=== PATIENT | male | born 1935 | race Caucasian/White ===

== ENCOUNTER → 2018-04-19 | Outpatient (CLI) | payer MEDICARE ==
[~2018-04-19] MED LIST: ASPI-650 PO; ASPI81TA59 PO; CLIN300C8 PO; DOCU-131 PO; DONE10TA14 PO; DONE10TA7 PO; FERR325T18 PO; FOLI0.8T2 PO; GADOBUTROL 7.5 MMOL/7.5 ML PFS ONE; GLIM4TAB2 PO; INSU100C SQ-INSULIN; INSU100V8 SQ; IVIG; LEVE500T53 PO; LEVO50TA5 PO; METH25VI22 PO; METH25VI62 IM; METH500T97 PO; NITR1PAT24 TD; OMEP40CA6 PO; PRED5TAB PO; RITU10VI IV; TAMS0.4C2 PO; TRAM50TA2 PO; VIT1TABL3 PO; WARF3TAB52 PO
== END | disposition home or self-care (01) ==
LOC: CFH 10:26
PROVIDERS: ATTEND Psychiatry & Neurology Neurology
DX: I63.9 Cerebral infarction, unspecified (principal); I67.82 Cerebral ischemia; G31.9 Degenerative disease of nervous system, unspecified; R90.82 White matter disease, unspecified
CPT/HCPCS: 70553; A9585

== ENCOUNTER 2018-07-23 10:00 | Inpatient (IN) | payer MEDICARE ==
[~2018-07-23] VITALS: Ht 177.8 cm; Wt 68.8 kg
[~2018-07-23 10:00] MED LIST changes: -GADOBUTROL 7.5 MMOL/7.5 ML PFS ONE
[2018-07-23] MEDS ORDERED: ASPI-496 PO (10:44)
[2018-07-23] MEDS ORDERED: DOCU-131 PO (10:44)
[2018-07-23] MEDS ORDERED: DIGO125T PO (10:44)
[2018-07-23] MEDS ORDERED: CURCUMIN PO (10:44)
[2018-07-23 11:29] LABS: BASOPHILS # (AUTO) 0.05 x10^3/uL (0-0.1); BASOPHILS % (AUTO) 1 % (0-1); EOSINOPHILS % (AUTO) 0 % (1-7); LYMPHOCYTES # (AUTO) 1.49 x10^3/uL (1-3.4); LYMPHOCYTES % (AUTO) 15 % (22-44); MD NO; MEAN CORPUSCULAR HEMOGLOBIN 31.2 pg (27.5-34.5); MEAN CORPUSCULAR HGB CONC 33.9 g/dL (33.2-36.2); MEAN CORPUSCULAR VOLUME 92.1 fL (81-97); MEAN PLATELET VOLUME 11.2 fL (7.4-10.4); MONOCYTES % (AUTO) 11 % (2-9); NEUTROPHILS # (AUTO) 7.52 x10^3/uL (1.8-6.8); NEUTROPHILS % (AUTO) 74 % (42-75); PLATELET COUNT 118 x10^3/uL (130-400); RED CELL DISTRIBUTION WIDTH 20.8 % (9.4-14.8)
[2018-07-23 11:38] LABS: INTERNATIONAL NORMALIZED RATIO 1.23 (0.93-1.1); PROTHROMBIN TIME 12.7 Seconds (9.6-11.5)
[2018-07-23 11:39] LABS: ALANINE AMINOTRANSFERASE 92 U/L (12-78); ALBUMIN 2.7 g/dL (3.4-5.0); ANION GAP 6 mmol/L (5-15); CALCIUM 7.7 mg/dL (8.5-10.1); CHLORIDE 105 mmol/L (98-107); CREATININE 0.86 mg/dL (0.7-1.3)
[2018-07-23 11:42] LABS: ALKALINE PHOSPHATASE 105 U/L (45-117); BILIRUBIN,TOTAL 2.9 mg/dL (0.2-1.0); TOTAL PROTEIN 5.5 g/dL (6.4-8.2); TROPONIN I 0.064 ng/mL (0.000-0.045)
[2018-07-23] MEDS ORDERED: SODIUM CHLORIDE FLUSH 10ML SYR IVF ONE (12:00)
[2018-07-23] MEDS ORDERED: VANCOMYCIN 1,300 MG in SODIUM CHLORIDE 0.9% 250 ML IV ONE (13:00)
[2018-07-23] MEDS ORDERED: AZTREONAM 2 GM in DEXTROSE 5% 100 ML IV ONE (13:00)
[2018-07-23] MEDS ORDERED: VANCOMYCIN PER PHARMACY MC ONE (13:00)
[2018-07-23] MEDS ORDERED: D5%-0.45% NACL 1,000 ML IV SCH (14:06)
[2018-07-23] MEDS ORDERED: VANCOMYCIN PER PHARMACY MC PRN (14:30)
[2018-07-23] MEDS ORDERED: ONDANSETRON 2MG/ML, 2ML IVPush PRN (14:30)
[2018-07-23] MEDS ORDERED: ONDANSETRON ODT 4 MG PO PRN (14:30)
[2018-07-23] MEDS ORDERED: PHARMACY MAY ADJ FOR RENAL FX MC PRN (14:30)
[2018-07-23] MEDS ORDERED: LABETALOL 5MG/ML, 20ML IVPush PRN (14:30)
[2018-07-23 14:47] VITALS: BP 110/68
[2018-07-23 14:48] LABS: FREE T4 (FREE THYROXINE) 1.14 ng/dL (0.76-1.46)
[2018-07-23] MEDS ORDERED: PHARMACOKINETIC MONITORING MC PRN (15:30)
[2018-07-23] MEDS ORDERED: PHARMACOKINETIC CONSULTATION MC ONE (15:30)
[2018-07-23 17:54] LABS: TROPONIN I 0.071 ng/mL (0.000-0.045)
[2018-07-23] MEDS: D5%-0.9% NACL 1,000 ML IV SCH (17:55)
[2018-07-23] MEDS: AZTREONAM 1 GM in SODIUM CHLORIDE 0.9% 50 ML IV SCH (17:56)
[2018-07-23 18:44] LABS: CULTURE INDICATED? YES; MICROSCOPIC INDICATED
[2018-07-23 20:05] VITALS: BP 111/60
[2018-07-23] MEDS: DONEPEZIL 10 MG TABLET PO SCH (21:00)
[2018-07-23] MEDS ORDERED: MAGNESIUM SULFATE PMX 2GM/50ML 50 ML IV ONE (22:00)
[2018-07-24] MEDS: AZTREONAM 1 GM in SODIUM CHLORIDE 0.9% 50 ML IV SCH ×3 (00:23→20:05)
[2018-07-24 00:46] VITALS: BP 109/63
[2018-07-24 05:47] LABS: CALCIUM 7.9 mg/dL (8.5-10.1); CHLORIDE 106 mmol/L (98-107)
[2018-07-24] MEDS ORDERED: LEVOTHYROXINE 50 MCG TABLET PO SCH (06:00)
[2018-07-24 06:02] LABS: ALANINE AMINOTRANSFERASE 73 U/L (12-78); ALBUMIN 2.4 g/dL (3.4-5.0); ALKALINE PHOSPHATASE 93 U/L (45-117); ANION GAP 7 mmol/L (5-15); BILIRUBIN,TOTAL 1.7 mg/dL (0.2-1.0); CREATININE 0.71 mg/dL (0.7-1.3)
[2018-07-24 06:04] LABS: MEAN CORPUSCULAR HEMOGLOBIN 30.9 pg (27.5-34.5); MEAN CORPUSCULAR HGB CONC 33.3 g/dL (33.2-36.2); MEAN CORPUSCULAR VOLUME 92.8 fL (81-97); RED BLOOD COUNT 3.33 x10^6/uL (4.38-5.82); RED CELL DISTRIBUTION WIDTH 21.9 % (9.4-14.8)
[2018-07-24 06:30] LABS: MD YES
[2018-07-24 06:31] LABS: ANISOCYTOSIS 2+; LYMPH#(MANUAL) 1.53 x10^3/uL (1-3.4); LYMPHS% (MANUAL) 21 % (22-44); MONOS#(MANUAL) 0.66 x10^3/uL (0.3-2.7); MONOS% (MANUAL) 9 % (2-9); SEG#(MANUAL) 5.11 x10^3/uL (1.8-6.8); SEGS% (MANUAL) 70 % (42-75)
[2018-07-24 06:32] LABS: ACANTHOCYTES 1+; OVALOCYTES 1+
[2018-07-24 06:40] LABS: <PLATELET ESTIMATE> ADEQUATE; LARGE PLATELETS 1+; MEAN PLATELET VOLUME 10.9 fL (7.4-10.4); PLATELET COUNT 150 x10^3/uL (130-400)
[2018-07-24 07:55] VITALS: BP 107/61
[2018-07-24] MEDS: FOLIC ACID 1 MG TABLET PO SCH (09:00)
[2018-07-24] MEDS: TAMSULOSIN 0.4 MG CAP.ER.24H PO SCH (09:00)
[2018-07-24] MEDS: DIGOXIN 0.25 MG/ML, 2ML IVPush SCH (11:10)
[2018-07-24 12:03] VITALS: BP 113/66
[2018-07-24] MEDS: VANCOMYCIN 1,300 MG in SODIUM CHLORIDE 0.9% 250 ML IV SCH (13:18)
[2018-07-24] MEDS ORDERED: POTASSIUM CHLORIDE 40 MEQ in SODIUM CHLORIDE 0.9% 500 ML IV ONE (13:30)
[2018-07-24] MEDS ORDERED: MORPHINE SULFATE 4 MG/ML, 1ML IVPush ONE (15:00)
[2018-07-24] MEDS ORDERED: MORPHINE SULFATE 4 MG/ML, 1ML ONE (15:00)
[2018-07-24] MEDS: LIDODERM 5% PATCH TD SCH (15:06)
[2018-07-24] MEDS: ACETAMINOPHEN 650 MG SUPP PR PRN (18:34)
[2018-07-24 19:41] VITALS: BP 124/65
[2018-07-24] MEDS: DONEPEZIL 10 MG TABLET PO SCH (21:00)
[2018-07-24] MEDS: D5%-0.9% NACL 1,000 ML IV SCH (23:34)
[2018-07-25 01:35] VITALS: BP 105/63
[2018-07-25] MEDS: ACETAMINOPHEN 650 MG SUPP PR PRN (02:00)
[2018-07-25] MEDS: AZTREONAM 1 GM in SODIUM CHLORIDE 0.9% 50 ML IV SCH ×3 (03:40→22:06)
[2018-07-25 07:33] LABS: ALBUMIN 2.4 g/dL (3.4-5.0); CALCIUM 8.3 mg/dL (8.5-10.1); CREATININE 0.59 mg/dL (0.7-1.3)
[2018-07-25 07:35] LABS: MEAN CORPUSCULAR HEMOGLOBIN 30.9 pg (27.5-34.5); MEAN CORPUSCULAR HGB CONC 33.3 g/dL (33.2-36.2); MEAN CORPUSCULAR VOLUME 92.7 fL (81-97); MEAN PLATELET VOLUME 10.2 fL (7.4-10.4); PLATELET COUNT 117 x10^3/uL (130-400); RED BLOOD COUNT 3.33 x10^6/uL (4.38-5.82)
[2018-07-25] MEDS: FOLIC ACID 1 MG TABLET PO SCH (07:35)
[2018-07-25] MEDS: TAMSULOSIN 0.4 MG CAP.ER.24H PO SCH (07:35)
[2018-07-25 07:39] LABS: ANION GAP 5 mmol/L (5-15); CHLORIDE 110 mmol/L (98-107)
[2018-07-25 08:00] VITALS: BP 127/74
[2018-07-25 08:11] LABS: RED CELL DISTRIBUTION WIDTH 21.6 % (9.4-14.8)
[2018-07-25 08:13] LABS: ANISOCYTOSIS 2+; BASOPHILS # (AUTO) 0.05 x10^3/uL (0-0.1); BASOPHILS % (AUTO) 1 % (0-1); EOSINOPHILS # (AUTO) 0.01 x10^3/uL (0-0.4); EOSINOPHILS % (AUTO) 0 % (1-7); LYMPHOCYTES # (AUTO) 1.45 x10^3/uL (1-3.4); LYMPHOCYTES % (AUTO) 20 % (22-44); MD MORPH REVIEW ONLY; MONOCYTES # (AUTO) 1.06 x10^3/uL (0.2-0.8); MONOCYTES % (AUTO) 14 % (2-9); NEUTROPHILS # (AUTO) 4.82 x10^3/uL (1.8-6.8); NEUTROPHILS % (AUTO) 65 % (42-75); OVALOCYTES 1+; POLYCHROMASIA 1+
[2018-07-25] MEDS: DIGOXIN 0.25 MG/ML, 2ML IVPush SCH (08:13)
[2018-07-25 08:14] LABS: <PLATELET ESTIMATE> DECREASED; ACANTHOCYTES 1+; ECHINOCYTES 1+
[2018-07-25 08:15] LABS: <PLT MORPHOLOGY> NORMAL PLT MORPH
[2018-07-25] MEDS ORDERED: D5%-0.45% NACL 1,000 ML IV SCH (08:30)
[2018-07-25 13:05] VITALS: BP 123/69
[2018-07-25] MEDS ORDERED: ASPIRIN 81 MG TABLET CHEW ONE (15:19)
[2018-07-25] MEDS: ASPIRIN 81 MG TABLET CHEW PO SCH (15:22)
[2018-07-25] MEDS: VANCOMYCIN 1,300 MG in SODIUM CHLORIDE 0.9% 250 ML IV SCH (15:22)
[2018-07-25] MEDS: LIDODERM 5% PATCH TD SCH (15:22)
[2018-07-25 19:56] VITALS: BP 113/69
[2018-07-25] MEDS: DONEPEZIL 10 MG TABLET PO SCH (22:06)
[2018-07-26 01:22] VITALS: BP 121/59
[2018-07-26 05:28] LABS: ANION GAP 6 mmol/L (5-15); CALCIUM 8.4 mg/dL (8.5-10.1); CHLORIDE 109 mmol/L (98-107); CREATININE 0.61 mg/dL (0.7-1.3)
[2018-07-26 05:30] LABS: MEAN CORPUSCULAR HEMOGLOBIN 31.1 pg (27.5-34.5); MEAN CORPUSCULAR HGB CONC 33.4 g/dL (33.2-36.2); MEAN CORPUSCULAR VOLUME 93.1 fL (81-97); MEAN PLATELET VOLUME 10.3 fL (7.4-10.4); PLATELET COUNT 121 x10^3/uL (130-400); RED BLOOD COUNT 3.65 x10^6/uL (4.38-5.82); RED CELL DISTRIBUTION WIDTH 21.9 % (9.4-14.8)
[2018-07-26] MEDS: AZTREONAM 1 GM in SODIUM CHLORIDE 0.9% 50 ML IV SCH ×3 (05:45→22:10)
[2018-07-26 06:53] LABS: MD YES
[2018-07-26 06:55] LABS: EOS#(MANUAL) 0.06 x10^3/uL (0.0-0.4); EOS% (MANUAL) 1 % (1-7); LYMPH#(MANUAL) 1.54 x10^3/uL (1-3.4); LYMPHS% (MANUAL) 24 % (22-44); MONOS#(MANUAL) 0.58 x10^3/uL (0.3-2.7); MONOS% (MANUAL) 9 % (2-9); SEG#(MANUAL) 4.22 x10^3/uL (1.8-6.8); SEGS% (MANUAL) 66 % (42-75)
[2018-07-26 06:56] LABS: ANISOCYTOSIS 2+; OVALOCYTES 1+
[2018-07-26 06:57] LABS: <PLATELET ESTIMATE> DECREASED; <PLT MORPHOLOGY> NORMAL PLT MORPH; ACANTHOCYTES 1+; ECHINOCYTES 1+
[2018-07-26 07:36] VITALS: BP 121/85
[2018-07-26] MEDS: TAMSULOSIN 0.4 MG CAP.ER.24H PO SCH (08:41)
[2018-07-26] MEDS: FOLIC ACID 1 MG TABLET PO SCH (08:41)
[2018-07-26] MEDS: ASPIRIN 81 MG TABLET CHEW PO SCH (08:41)
[2018-07-26] MEDS: DIGOXIN 0.25 MG/ML, 2ML IVPush SCH (08:47)
[2018-07-26] MEDS ORDERED: FUROSEMIDE 20 MG/2 ML ONE (08:58)
[2018-07-26] MEDS ORDERED: FUROSEMIDE 20 MG/2 ML IV ONE (09:30)
[2018-07-26 12:51] VITALS: BP 107/53
[2018-07-26] MEDS ORDERED: LEVOTHYROXINE 50 MCG TABLET PO ONE (13:30)
[2018-07-26] MEDS ORDERED: VANCOMYCIN 1,300 MG in SODIUM CHLORIDE 0.9% 250 ML IV ONE (15:00)
[2018-07-26] MEDS: LIDODERM 5% PATCH TD SCH (15:22)
[2018-07-26] MEDS: FERROUS SULFATE 325 MG TABLET PO SCH (15:28)
[2018-07-26 20:07] VITALS: BP 119/71
[2018-07-26] MEDS: DONEPEZIL 10 MG TABLET PO SCH (21:00)
[2018-07-26] MEDS: OMEPRAZOLE 20 MG CAPSULE.DR PO SCH (21:15)
[2018-07-26] MEDS: ACETAMINOPHEN 325 MG TABLET PO PRN (21:16)
[2018-07-27 01:12] VITALS: BP 114/75
[2018-07-27] MEDS: LEVOTHYROXINE 50 MCG TABLET PO SCH ×3 (06:05→17:47)
[2018-07-27] MEDS: ACETAMINOPHEN 325 MG TABLET PO PRN (06:05)
[2018-07-27 06:12] LABS: MEAN CORPUSCULAR HEMOGLOBIN 31.2 pg (27.5-34.5); MEAN CORPUSCULAR HGB CONC 33.7 g/dL (33.2-36.2); MEAN CORPUSCULAR VOLUME 92.6 fL (81-97); MEAN PLATELET VOLUME 10.2 fL (7.4-10.4); PLATELET COUNT 120 x10^3/uL (130-400); RED BLOOD COUNT 3.35 x10^6/uL (4.38-5.82); RED CELL DISTRIBUTION WIDTH 22.3 % (9.4-14.8)
[2018-07-27 06:16] LABS: ALBUMIN 2.3 g/dL (3.4-5.0); ANION GAP 9 mmol/L (5-15); CALCIUM 8.2 mg/dL (8.5-10.1); CHLORIDE 108 mmol/L (98-107); CREATININE 0.65 mg/dL (0.7-1.3)
[2018-07-27 06:33] LABS: BASOPHILS # (AUTO) 0.06 x10^3/uL (0-0.1); BASOPHILS % (AUTO) 1 % (0-1); EOSINOPHILS % (AUTO) 0 % (1-7); LYMPHOCYTES # (AUTO) 1.91 x10^3/uL (1-3.4); LYMPHOCYTES % (AUTO) 33 % (22-44); MD SCAN; MONOCYTES # (AUTO) 0.88 x10^3/uL (0.2-0.8); MONOCYTES % (AUTO) 15 % (2-9); NEUTROPHILS # (AUTO) 2.97 x10^3/uL (1.8-6.8); NEUTROPHILS % (AUTO) 51 % (42-75)
[2018-07-27] MEDS: AZTREONAM 1 GM in SODIUM CHLORIDE 0.9% 50 ML IV SCH ×3 (07:08→23:04)
[2018-07-27] MEDS ORDERED: ACETAMINOPHEN 325 MG TABLET PO PRN (07:30)
[2018-07-27 08:00] VITALS: BP 117/68
[2018-07-27] MEDS: FERROUS SULFATE 325 MG TABLET PO SCH ×2 (08:00→17:00)
[2018-07-27] MEDS: ASPIRIN 81 MG TABLET CHEW PO SCH (09:00)
[2018-07-27] MEDS: MULTIVITS,STRESS FORMULA 1 TABLET PO SCH (09:00)
[2018-07-27] MEDS: NEUTRA PHOS K 250 MG TABLET PO SCH ×4 (09:00→23:04)
[2018-07-27] MEDS: NITROGLYCERIN 0.4 MG/HR PATCH TD SCH (09:00)
[2018-07-27] MEDS: OMEPRAZOLE 20 MG CAPSULE.DR PO SCH ×2 (09:00→14:00)
[2018-07-27] MEDS: DOCUSATE 100 MG CAPSULE PO SCH (09:00)
[2018-07-27] MEDS: FOLIC ACID 1 MG TABLET PO SCH (09:00)
[2018-07-27] MEDS: DIGOXIN 0.25 MG/ML, 2ML IVPush SCH (09:20)
[2018-07-27] MEDS: TAMSULOSIN 0.4 MG CAP.ER.24H PO SCH (12:00)
[2018-07-27 13:45] VITALS: BP 123/62
[2018-07-27] MEDS ORDERED: FUROSEMIDE 20 MG/2 ML IV ONE (16:00)
[2018-07-27] MEDS: LIDODERM 5% PATCH TD SCH (17:31)
[2018-07-27] MEDS ORDERED: SODIUM CHLORIDE 0.45% 250 ML IV ONE (18:00)
[2018-07-27 20:25] VITALS: BP 102/62
[2018-07-28] VITALS (7 sets, daily range): BP systolic 97–130; BP diastolic 53–72
[2018-07-28] MEDS: LEVOTHYROXINE 50 MCG TABLET PO SCH (06:00)
[2018-07-28 06:08] LABS: ALBUMIN 2.2 g/dL (3.4-5.0); ANION GAP 6 mmol/L (5-15); CALCIUM 8.1 mg/dL (8.5-10.1); CHLORIDE 108 mmol/L (98-107); MEAN CORPUSCULAR HEMOGLOBIN 30.5 pg (27.5-34.5); MEAN CORPUSCULAR HGB CONC 33.1 g/dL (33.2-36.2); PLATELET COUNT 118 x10^3/uL (130-400); RED BLOOD COUNT 3.26 x10^6/uL (4.38-5.82); RED CELL DISTRIBUTION WIDTH 23.1 % (9.4-14.8)
[2018-07-28 06:11] LABS: ALANINE AMINOTRANSFERASE 40 U/L (12-78); ALKALINE PHOSPHATASE 114 U/L (45-117); BILIRUBIN,TOTAL 1.4 mg/dL (0.2-1.0); CREATININE 0.61 mg/dL (0.7-1.3); TOTAL PROTEIN 5.2 g/dL (6.4-8.2)
[2018-07-28 06:35] LABS: BASOPHILS # (AUTO) 0.05 x10^3/uL (0-0.1); BASOPHILS % (AUTO) 1 % (0-1); EOSINOPHILS # (AUTO) 0.01 x10^3/uL (0-0.4); EOSINOPHILS % (AUTO) 0 % (1-7); LYMPHOCYTES # (AUTO) 2.42 x10^3/uL (1-3.4); LYMPHOCYTES % (AUTO) 46 % (22-44); MD SCAN; MONOCYTES # (AUTO) 0.63 x10^3/uL (0.2-0.8); MONOCYTES % (AUTO) 12 % (2-9); NEUTROPHILS # (AUTO) 2.21 x10^3/uL (1.8-6.8); NEUTROPHILS % (AUTO) 42 % (42-75)
[2018-07-28] MEDS ORDERED: MAGNESIUM SULFATE PMX 2GM/50ML 50 ML IV ONE (07:30)
[2018-07-28] MEDS ORDERED: FERROUS SULFATE 220 MG/5 ML ORAL SOL PO SCH (08:00)
[2018-07-28] MEDS ORDERED: DIGOXIN 0.125 MG TABLET PO SCH (09:00)
[2018-07-28] MEDS ORDERED: SODIUM CHLORIDE 0.9%, 500ML IVBOLUS ONE (10:00)
[2018-07-28] MEDS: OMEPRAZOLE 20 MG CAPSULE.DR PO SCH ×2 (10:46→21:00)
[2018-07-28] MEDS: TAMSULOSIN 0.4 MG CAP.ER.24H PO SCH (10:46)
[2018-07-28] MEDS: FOLIC ACID 1 MG TABLET PO SCH (10:46)
[2018-07-28] MEDS: DOCUSATE 100 MG CAPSULE PO SCH (10:47)
[2018-07-28] MEDS: FERROUS SULFATE 220 MG/5 ML ORAL SOL PO SCH ×2 (10:47→17:00)
[2018-07-28] MEDS: ASPIRIN 81 MG TABLET CHEW PO SCH (10:47)
[2018-07-28] MEDS: MULTIVITS,STRESS FORMULA 1 TABLET PO SCH (10:47)
[2018-07-28] MEDS: DIGOXIN 0.25 MG/ML, 2ML IVPush SCH (10:48)
[2018-07-28] MEDS: NITROGLYCERIN 0.4 MG/HR PATCH TD SCH (10:48)
[2018-07-28] MEDS: LOSARTAN 25MG TABLET PO SCH (11:02)
[2018-07-28] MEDS: DONEPEZIL 10 MG TABLET PO SCH ×2 (11:02→21:00)
[2018-07-28] MEDS: AZTREONAM 1 GM in SODIUM CHLORIDE 0.9% 50 ML IV SCH ×2 (12:06→18:18)
[2018-07-28] MEDS: LIDODERM 5% PATCH TD SCH (22:08)
[2018-07-29] MEDS: AZTREONAM 1 GM in SODIUM CHLORIDE 0.9% 50 ML IV SCH ×3 (02:36→18:46)
[2018-07-29 04:00] VITALS: BP 105/63
[2018-07-29 06:01] LABS: MEAN CORPUSCULAR HEMOGLOBIN 30.7 pg (27.5-34.5); MEAN CORPUSCULAR HGB CONC 33.5 g/dL (33.2-36.2); MEAN CORPUSCULAR VOLUME 91.7 fL (81-97); MEAN PLATELET VOLUME 10.3 fL (7.4-10.4); PLATELET COUNT 126 x10^3/uL (130-400); RED BLOOD COUNT 3.41 x10^6/uL (4.38-5.82); RED CELL DISTRIBUTION WIDTH 23.4 % (9.4-14.8)
[2018-07-29 06:05] LABS: ALANINE AMINOTRANSFERASE 36 U/L (12-78); ALBUMIN 2.1 g/dL (3.4-5.0); ANION GAP 6 mmol/L (5-15); CALCIUM 8.3 mg/dL (8.5-10.1); CHLORIDE 109 mmol/L (98-107); CREATININE 0.64 mg/dL (0.7-1.3)
[2018-07-29 06:07] LABS: ALKALINE PHOSPHATASE 122 U/L (45-117); TOTAL PROTEIN 5.2 g/dL (6.4-8.2)
[2018-07-29 06:41] VITALS: BP 114/67
[2018-07-29 06:49] LABS: BASOPHILS # (AUTO) 0.05 x10^3/uL (0-0.1); BASOPHILS % (AUTO) 1 % (0-1); EOSINOPHILS % (AUTO) 0 % (1-7); LYMPHOCYTES # (AUTO) 2.08 x10^3/uL (1-3.4); LYMPHOCYTES % (AUTO) 40 % (22-44); MD SCAN; MONOCYTES # (AUTO) 0.53 x10^3/uL (0.2-0.8); MONOCYTES % (AUTO) 10 % (2-9); NEUTROPHILS # (AUTO) 2.49 x10^3/uL (1.8-6.8); NEUTROPHILS % (AUTO) 48 % (42-75)
[2018-07-29] MEDS ORDERED: POTASSIUM CHLORIDE 20 MEQ TAB.ER.PRT PO ONE ×2 (08:00→11:30)
[2018-07-29] MEDS: FERROUS SULFATE 220 MG/5 ML ORAL SOL PO SCH ×3 (08:00→17:39)
[2018-07-29] MEDS: ASPIRIN 81 MG TABLET CHEW PO SCH (09:00)
[2018-07-29] MEDS: ACETAMINOPHEN 325 MG TABLET PO PRN ×2 (09:18→18:54)
[2018-07-29] MEDS: LEVOTHYROXINE 50 MCG TABLET PO SCH (09:18)
[2018-07-29] MEDS: DOCUSATE 100 MG CAPSULE PO SCH (09:19)
[2018-07-29] MEDS: OMEPRAZOLE 20 MG CAPSULE.DR PO SCH ×2 (09:19→21:00)
[2018-07-29] MEDS: FOLIC ACID 1 MG TABLET PO SCH (09:20)
[2018-07-29] MEDS: MULTIVITS,STRESS FORMULA 1 TABLET PO SCH (09:20)
[2018-07-29] MEDS: LOSARTAN 25MG TABLET PO SCH (09:20)
[2018-07-29] MEDS: TAMSULOSIN 0.4 MG CAP.ER.24H PO SCH (09:22)
[2018-07-29] MEDS: NITROGLYCERIN 0.4 MG/HR PATCH TD SCH (10:34)
[2018-07-29 12:09] VITALS: BP 104/63
[2018-07-29 13:34] VITALS: BP 115/67
[2018-07-29] MEDS: DIGOXIN 0.25 MG/ML, 2ML IVPush SCH (16:00)
[2018-07-29] MEDS: DONEPEZIL 10 MG TABLET PO SCH (16:22)
[2018-07-29 20:01] VITALS: BP 102/57
[2018-07-29] MEDS: LIDODERM 5% PATCH TD SCH (21:03)
[2018-07-30 01:01] VITALS: BP 104/62
[2018-07-30] MEDS: AZTREONAM 1 GM in SODIUM CHLORIDE 0.9% 50 ML IV SCH ×2 (02:45→10:59)
[2018-07-30 05:15] LABS: MEAN CORPUSCULAR HGB CONC 33.7 g/dL (33.2-36.2); PLATELET COUNT 118 x10^3/uL (130-400); RED BLOOD COUNT 3.06 x10^6/uL (4.38-5.82); RED CELL DISTRIBUTION WIDTH 23.1 % (9.4-14.8)
[2018-07-30 05:25] LABS: ALANINE AMINOTRANSFERASE 34 U/L (12-78); ALBUMIN 2.1 g/dL (3.4-5.0); ANION GAP 5 mmol/L (5-15); CHLORIDE 110 mmol/L (98-107); CREATININE 0.55 mg/dL (0.7-1.3)
[2018-07-30 05:27] LABS: ALKALINE PHOSPHATASE 123 U/L (45-117); TOTAL PROTEIN 5.2 g/dL (6.4-8.2)
[2018-07-30 05:56] LABS: BASOPHILS # (AUTO) 0.06 x10^3/uL (0-0.1); BASOPHILS % (AUTO) 1 % (0-1); EOSINOPHILS % (AUTO) 0 % (1-7); LYMPHOCYTES # (AUTO) 2.27 x10^3/uL (1-3.4); LYMPHOCYTES % (AUTO) 43 % (22-44); MD SCAN; MONOCYTES # (AUTO) 0.63 x10^3/uL (0.2-0.8); MONOCYTES % (AUTO) 12 % (2-9); NEUTROPHILS # (AUTO) 2.33 x10^3/uL (1.8-6.8); NEUTROPHILS % (AUTO) 44 % (42-75)
[2018-07-30] MEDS: LEVOTHYROXINE 50 MCG TABLET PO SCH (06:00)
[2018-07-30 07:15] VITALS: BP 99/62
[2018-07-30] MEDS: NITROGLYCERIN 0.4 MG/HR PATCH TD SCH (09:00)
[2018-07-30] MEDS ORDERED: LOSA25TA2 PO (09:34)
[2018-07-30] MEDS ORDERED: DIGOXIN 0.125 MG TABLET PO SCH (10:00)
[2018-07-30] MEDS ORDERED: SODIUM CHLORIDE 0.45%, 1,000ML IVBOLUS ONE (10:00)
[2018-07-30] MEDS ORDERED: DIGO125T PO (11:57)
[2018-07-30 12:00] VITALS: BP 112/65
[2018-07-30] MEDS: ASPIRIN 81 MG TABLET CHEW PO SCH (12:26)
[2018-07-30] MEDS: TAMSULOSIN 0.4 MG CAP.ER.24H PO SCH (12:26)
[2018-07-30] MEDS: FERROUS SULFATE 220 MG/5 ML ORAL SOL PO SCH (12:26)
[2018-07-30] MEDS: LOSARTAN 25MG TABLET PO SCH (12:27)
[2018-07-30] MEDS: ACETAMINOPHEN 325 MG TABLET PO PRN (12:27)
[2018-07-30] MEDS: MULTIVITS,STRESS FORMULA 1 TABLET PO SCH (12:27)
[2018-07-30] MEDS: OMEPRAZOLE 20 MG CAPSULE.DR PO SCH (12:28)
[2018-07-30] MEDS: FOLIC ACID 1 MG TABLET PO SCH (12:28)
[2018-07-30] MEDS: DOCUSATE 100 MG CAPSULE PO SCH (12:28)
== END 2018-07-30 16:10 | disposition home health service (06) | DRG 177 ==
LOC: ED 13:01 → EDIP 13:07 → 5SO 14:20
PROVIDERS: ADMIT Internal Medicine; ATTEND Hospitalist
DX: J15.0 Pneumonia due to Klebsiella pneumoniae (principal); G93.41 Metabolic encephalopathy; E43 Unspecified severe protein-calorie malnutrition; I50.23 Acute on chronic systolic (congestive) heart failure; D68.69 Other thrombophilia; I11.0 Hypertensive heart disease with heart failure; Z68.21 Body mass index [BMI] 21.0-21.9, adult; D69.6 Thrombocytopenia, unspecified; E03.9 Hypothyroidism, unspecified; E11.9 Type 2 diabetes mellitus without complications; D64.9 Anemia, unspecified; E78.5 Hyperlipidemia, unspecified; F03.90 Unspecified dementia, unspecified severity, without behavioral disturbance, psychotic disturbance, mood disturbance, and anxiety; I25.10 Atherosclerotic heart disease of native coronary artery without angina pectoris; I48.91 Unspecified atrial fibrillation; J15.5 Pneumonia due to Escherichia coli; K76.0 Fatty (change of) liver, not elsewhere classified; N40.0 Benign prostatic hyperplasia without lower urinary tract symptoms; Y95 Nosocomial condition; Z66 Do not resuscitate; Z79.01 Long term (current) use of anticoagulants; Z79.82 Long term (current) use of aspirin; Z86.73 Personal history of transient ischemic attack (TIA), and cerebral infarction without residual deficits; Z87.891 Personal history of nicotine dependence; Z95.5 Presence of coronary angioplasty implant and graft; Z88.8 Allergy status to other drugs, medicaments and biological substances; I49.3 Ventricular premature depolarization
CPT/HCPCS: 36415; 36600; 70450; 71045; 76700; 80048; 80053; 80162; 81001; 82040; 82533; 82803; 82962; 83605; 83735; 83880; 84100; 84145; 84439; 84443; 84484; 85025; 85610; 85730; 87040; 87070; 87077; 87086; 87186; 87205; 93005; 93306; 93970; 96374; 99285; G0378; J3370; J3480; J7042; J1160; J1940; J3475; J7040; J7050